=== PATIENT | female | born 1985 | race Caucasian/White ===

== ENCOUNTER 2024-05-15 12:53 | Outpatient (CLI) | payer BC, SELFPAY ==
--- NOTE | 2024-05-15 13:00 | CRLHL7_ITS ---
For Patients: As a result of the Century Cures Act, medical imaging exams and procedure reports are released immediately into your electronic medical record. You may view this report before your referring provider. If you have questions, please contact your health care provider. INDICATION: First trimester scan, establish dates. COMPARISON: None. TECHNIQUE: Real-time peters-scale imaging of the pelvis was performed. FINDINGS: Intrauterine gestational sac is present measuring 3.2 cm, 6 weeks 4 days. Intrauterine pole measures 6.7 millimeters, 6 weeks 4 days. No heart tones. Yolk sac not visualized. Corpus luteal cyst right ovary. Unremarkable left ovary. IMPRESSION: Nonviable intrauterine gestation. Dictated by Rex Montanez MD @ 05/16/2024 4:13:06 PM (Electronically Signed)
== END 2024-05-15 12:54 | disposition home or self-care (01) ==
LOC: US 12:54
PROVIDERS: Visit Provider Midwife
DX: Z34.91 Encounter for supervision of normal pregnancy, unspecified, first trimester (principal)
CPT/HCPCS: 76817

== ENCOUNTER 2025-03-19 17:03 | Emergency (ER) | payer BC, SELFPAY ==
--- OUTSIDE RECORDS SUMMARY | 2025-03-19 17:05 | XMS_ITS | Clinical Summary ---
Author Organization [facility] Address [address] [place] [address] Care Team Providers Care System Dispatcher Name Role Phone Elsewhere, Pcp Primary Care Provider Unavailabl e Source Comments Patient records contain information from all sites at [facility]. For routine questions regarding patient records, call [phone] during business hours, M-F 8:00 AM - 5:00 PM Central Time. Record requests for emergency care only can be directed to [phone] at any time.[facility] Allergies No known active allergies Medications Deblitane 0.35 mg tablet Take 1 tablet by mouth daily. 08/08/2023 Active multivitamin tablet Take 1 tablet by mouth daily. Active benzonatate (Tessalon Perles) 100 mg capsule Take 1 capsule (100 mg total) by mouth 3 (three) times a day as needed for cough. 20 capsule 11/28/2024 Active Active Problems No known active problems Immunizations Immunization Administration Dates Next Due SARS-COV-2 (COVID-19) - MODE RNA (12 YEARS AND OLDER) Fall Seasonal 05/13/2023 SARS-COV-2 (COVID-19) - PFIZ ER (Discontinued)(12 years or older) 06/30/2021,11/13/2020,10/23/2020 SARS-COV-2 (COVID-19) - PFIZ ER BIVALENT TS(Discontinued)(12 YEARS OR OLDER) 07/28/2022 influenza vaccine quad (FLUZONE/FLUARIX) (6 months and older)(PF) 05/13/2023,07/28/2022,05/27/2021,2019 Social History Tobacco Use Types Packs/Day Years Used Date Smoking Tobacco: Former Cigarettes Q uit: 04/02/2015 Smokeless Tobacco: Never Tobacco Cessation:Counseling Given: Not Answered Comments No Sex and Gender Information Value Date Recorded Sex Assigned at Not on file Legal Sex Female 4:54 PM DAY CARE HOME PROVIDER Gender Identity Not on file Sexual Orientation Not on file Last Filed Vital Signs Vital Sign Reading Time Taken Comments Blood Pressure 118/79 11/28/2024 10:05 AM CDT Pulse 105 11/28/2024 10:05 AM CDT Temperature 37 C (98.6 F) 11/28/2024 10:05 AM CDT Respiratory Rate 20 11/28/2024 10:0 5 AM CDT Oxygen Saturation 94% 11/28/2024 10: 05 AM CDT Inhaled Oxygen Concentration - - Weight 88.4 kg (194 lb 14.4 oz) 025 10:05 AM CDT Height 163 cm (5' 4.17) 08/22/2023 3:13 PM DAY CARE HOME PROVIDER Body Mass Index 33.27 08/22/2023 3:13 PM DAY CARE HOME PROVIDER Plan of Treatment Health Maintenance Due Date Last Done Comments HIV Screening 1987 Hepatitis C Screening 1985 COVID-19 Vaccine ( season) 2024 05/13/2023, 07/28/2022, 06/30/2021, Additional history exists Lipid (Cholesterol) Screening 05/09/2024 05/09/2019 Depression Screening (Annual PHQ-2) 07/25/2024 Influenza Vaccine (#1) 2025 , 07/28/2022, 05/27/2021, Additional history exists Cervical/Vaginal Cancer Screening 09/15/2025 09/15/2022 DTaP,Tdap,and Td Vaccines (7 - Td or Tdap) 07/30/2026 07/30/2016, 01/15/1999, 10/13/1992, Additional history exists IPV Vaccines Completed 10/13/1992, 04/25, 03/08/1988, Additional history exists Hepatitis B Vaccines Completed 10/16/1999, 03/23/1999, 01/15/1999 HPV Vaccines Completed 10/18/2018, 04/24, 04/05/2018 Pneumococcal vaccine (0-49 years) Aged Out No longer eligible based on patient's age to complete this topic Insurance [facility] Care Teams System Dispatcher Relationship Specialty Start Date End Date Elsewhere, Pcp PCP - General Family Medicine 05/21/20
--- OUTSIDE RECORDS SUMMARY | 2025-03-19 17:05 | XMS_ITS | Clinical Summary ---
Author Organization [facility] Address [address] [place] [address]. [place] [address] Care Team Providers Care Glaze Sprayer Name Role Phone Cielo Lopes MD Primary Care Provider Cielo Lopes MD Unavailable [phone] Allergies No known active allergies Medications Calcium Citrate-Vitamin D (CALCIUM + D PO) Active norethindrone (MICRONOR) 0.35 MG tabletIndication s:Cystic acne Take 1 tablet (0.35 mg) by mouth daily 84 tablet 3 09/15/2022 Active Active Problems Problem Noted Date Diagnosed Date Family history of breast can cer - paternal aunt and paternal grandmother -start mammograms at 40 and do yearly 09/15/2022 Cystic acne 09/15/2022 External hemorrhoids 10/13/2016 Gastroesophageal reflux dise ase without esophagitis - mostly resolved after delivery- off medications 06/16/2016 Blood type O+ 06/04/2016 Supervision of normal first , antepartu m 05/13/2016 Migraine without aura and wi thout status migrainosus, not intractable - much better off combination ocp's - doing well with progesterone only Overview (05/02/2019): increased premenstrual migraines with Sprintec Resolved Problems Problem Noted Date Diagnosed Date Resolved Date Indication for care in labor or delivery 08/27/2016 03/07/2019 Immunizations Immunization Administration Dates Next Due Flu, Unspecified 05/06/1998 HIB (PRP-T) 03/11/1989 HPV9 (Gardasil) 10/18/2018,05/11/2018,04/05/2018 Hepatitis B, Peds (Engerix-B/Recombivax HB) 10/16/1999,03/23/1999,01/15/1999 Influenza (IIV3) PF 05/22/1999 Influenza Vaccine >6 months,quad, PF ,04/05/2018,04/06/2017,2015 MMR (MMRII) 01/15/1999,09/06/1988 OPV, trivalent, live 10/13/1992,05/19/19 89,03/08/1988,1987,1987 TDAP Vaccine (Boostrix) 07/30/2016 Td (Adult), Adsorbed 01/15/1999 Family History Medical History Relation Comments Cancer Paternal Aunt Cerebrovascular Disease Paternal Grandfather Breast Cancer Paternal Grandmother Breast Cancer Paternal Uncle Relation Status Comments Father Alive Mother Alive Paternal Aunt Alive Paternal Grandfather Paternal Grandmother Alive Paternal Uncle Alive Social History Tobacco Use Types Packs/Day Years Used Date Smoking Tobacco: Former Cigarettes 0.5 13 1 08/25/2001 - 06/24/2015 Smokeless Tobacco: Never Alcohol Use Standard Drinks/Week Comments No 0 (1 standard drink = 0.6 oz pur e alcohol) PHQ-2 Answer Date Recorded PHQ-2 Score 0 09/15/2022 Adolescent Education Answer Date Record ed Getting School Help Needed Not on file 04/15 Comments No Sex and Gender Information Value Date Recorded Sex Assigned at Not on file Legal Sex Female 1:35 PM CDT Gender Identity Not on file Sexual Orientation Not on file 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 Not on file Not on file Not on f ile Last Filed Vital Signs Vital Sign Reading Time Taken Comments Blood Pressure 118/78 09/15/2022 12:18 PM WEB DESIGN INSTRUCTOR Pulse 80 09/15/2022 12:18 PM WEB DESIGN INSTRUCTOR Temperature 37.3 C (99.1 F) 09/15/2022 12:18 PM WEB DESIGN INSTRUCTOR Respiratory Rate 16 09/15/2022 12:18 PM WEB DESIGN INSTRUCTOR Oxygen Saturation 98% 09/15/2022 12:18 PM WEB DESIGN INSTRUCTOR Inhaled Oxygen Concentration - - Weight 73 kg (161 lb) 09/15/2022 12:18 PM WEB DESIGN INSTRUCTOR Height 162.6 cm (5' 4) 09/15/2022 12:18 PM WEB DESIGN INSTRUCTOR Body Mass Index 27.64 09/15/2022 12:18 PM WEB DESIGN INSTRUCTOR Plan of Treatment Health Maintenance Due Date Last Done Comments DIABETES SCREENING 06/06/2022 06/06/2019, 05/09/2019 ANNUAL REVIEW OF HM ORDERS 09/15/2023 09/15/2022 YEARLY PREVENTIVE VISIT 09/15/2023 09/15/2022, 05/02 COVID-19 VACCINE ( season) 2024 07/28/2022, 06/30/2021, 11/13/2020, Additional history exists PHQ-2 (once per calendar year) 2024 09/15/2022, 05/02/2019, 11/18/2017, Additional history exists INFLUENZA VACCINE (#1) 2025 , 05/27/2021, 05/21/2020, Additional history exists HPV TEST 09/15/2025 09/15/2022, 05/13/2016 PAP 09/15/2025 09/15/2022, 0308/2016, 05/13/2016 DTAP/TDAP/TD VACCINE (3 - Td or Tdap) 07/30/2026 07/30/2016, 01/15/1999 ADVANCE CARE PLANNING 09/27/2027 09/26/2022 ZOSTER VACCINE (1 of 2) 2037 HEPATITIS B VACCINE Completed 10/16/1999, 03/23/1999, 01/15/1999 HIV SCREENING Completed 05/13/2016 HPV VACCINE Completed 10/18/2018, 04/24, 04/05/2018 HEPATITIS C SCREENING Completed 09/15/2022 MENINGITIS VACCINE Aged Out No longer eligible based on patient's age to complete this topic PNEUMOCOCCAL VACCINE: PEDIATRICS (0 to 5 YEARS) AND AT-RISK PATIENTS (6 to 49 YEARS) Aged Out No longer eligible based on patient's age to complete this topic Procedures Procedure Name Priority Date/Time Associated Diagnosis Comments HEPATITIS C SCREEN REFLEX TO HCV RNA QUANT AND GENOTYPE Routine 09/15/2022 1:12 PM WEB DESIGN INSTRUCTOR Need for hepatitis C screening test GYNECOLOGIC CYTOLOGY Routine 09/15/2022 12:41 PM WEB DESIGN INSTRUCTOR Cervical cancer screening HPV HIGH RISK TYPES DNA CERVICAL Routine 09/15/2022 12:41 PM WEB DESIGN INSTRUCTOR Cervical cancer screening BASIC METABOLIC PANEL Routine 06/06/2019 9:44 AM WEB DESIGN INSTRUCTOR Cystic acne assisted current use of diuretic HIV ANTIGEN ANTIBODY COMBO Routine 05/13/2016 11:08 AM CDT Supervision of normal first , antepartum from Last 3 Months or Most Recently Relevant to Health Maintenance Results * Hepatitis C Screen Reflex to HCV RNA Quant and Genotype (09/15/2022 1:12 PM WEB DESIGN INSTRUCTOR) Hepatitis C Antibody Nonreactive Nonreactive 09/16/2022 9:40 AM WEB DESIGN INSTRUCTOR [facility] Blood BLOOD SPECIMEN / Unknown Venipuncture / Unknown 09/15/2022 1:12 PM WEB DESIGN INSTRUCTOR 09/15/2022 1:12 PM WEB DESIGN INSTRUCTOR Narrative [facility] - 09/16/2022 9:40 AM WEB DESIGN INSTRUCTOR Assay performance characteristics have not been established for newborns, infants, and children. us Cielo Lopes MD LAB - BLOOD ORDERABLES Final Result [facility] [address] [facility], Room [address] [phone] * Pap Screen with HPV - recommended age 30 - 65 years (09/15/2022 12:41 PM WEB DESIGN INSTRUCTOR) Interpretation Negative for Intraepithelial Lesion or Malignancy (NILM) 09/20/2022 1:46 PM WEB DESIGN INSTRUCTOR [facility] at 1346 WEB DESIGN INSTRUCTOR Comment Papanicolaou Test Limitations: Cervical cytology is a screening test with limited sensitivity, and regular screening is critical for cancer prevention. Pap tests are primarily effective for the diagnosis/prevent ion of squamous cell carcinoma, not adenocarcinoma or other cancers. 09/20/2022 1:46 PM WEB DESIGN INSTRUCTOR [facility] Specimen Adequacy Satisfactory for evaluation, endocervical/choudhury sformation zone component present 09/20/2022 1:46 PM WEB DESIGN INSTRUCTOR [facility] Clinical Information none 09/20/2022 1:46 PM WEB DESIGN INSTRUCTOR [facility] LMP/Menopause Date 09/06/2022 09/20/2022 1:46 PM WEB DESIGN INSTRUCTOR [facility] Reflex Testing Yes regardless of result 09/20/2022 1:46 PM WEB DESIGN INSTRUCTOR [facility] Previous Abnormal? No 09/20/2022 1:46 PM WEB DESIGN INSTRUCTOR [facility] Performing Labs The technical component of this testing was completed at [facility] 09/20/2022 1:46 PM WEB DESIGN INSTRUCTOR [facility] Brushing CERVIX UTERI STRUCTURE / Unknown Non-blood Collection / Unknown 09/15/2022 12:41 PM WEB DESIGN INSTRUCTOR 09/15/2022 1:09 PM WEB DESIGN INSTRUCTOR Cielo Lopes MD LAB - JASMIN AP Final R esult [facility] Specialty Lab [address] [facility], [address] [phone], [facility] [phone] * HPV High Risk Types DNA Cervical (09/15/2022 12:41 PM WEB DESIGN INSTRUCTOR) Other HR HPV Negative Negative 09/22/2022 3:11 PM WEB DESIGN INSTRUCTOR [facility] HPV16 DNA Negative Negative 09/22/2022 3:11 PM WEB DESIGN INSTRUCTOR [facility] HPV18 DNA Negative Negative 09/22/2022 3:11 PM WEB DESIGN INSTRUCTOR [facility] FINAL DIAGNOSIS This patient's sample is negative for HPV DNA. This test was developed and its performance characteristics determined by the [facility], Molecular Diagnostics Laboratory. It has not been cleared or approved by the FDA. The laboratory is regulated under CLIA as qualified to perform high-complexity testing. This test is used for clinical purposes. It should not be regarded as investigational or for research. METHODOLOGY: The Noe Kary 4800 system uses automated extraction, simultaneous amplification of HPV (L1 region) and beta-globin, followed by real time detection of fluorescent labeled HPV and beta globin using specific oligonucleotide probes. The test specifically identifies types HPV 16 DNA and HPV 18 DNA while concurrently detecting the rest of the high risk types (31, 33, 35, 39, 45, 51, 52, 56, 58, 59, 66 or 68). COMMENTS: This test is not intended for use as a screening device for woman under age 30 with normal cervical cytology. Results should be correlated with cytologic and histologic findings. Close clinical followup is recommended. 09/22/2022 3:11 PM WEB DESIGN INSTRUCTOR [facility] Brushing CERVIX UTERI STRUCTURE / Unknown Non-blood Collection / Unknown 09/15/2022 12:41 PM WEB DESIGN INSTRUCTOR 09/21/2022 7:43 AM WEB DESIGN INSTRUCTOR us Cielo Lopes MD LAB - BLOOD ORDERABLES Final Result [facility] Molecular Diagnostics [address] [facility], [address] [phone], [facility] [phone] * Basic metabolic panel (06/06/2019 9:44 AM WEB DESIGN INSTRUCTOR) Sodium 138 133 - 144 mmol/L 06/06/2019 1:25 PM [facility] Potassium 4.0 3.4 - 5.3 mmol/L 06/06/2019 1:25 PM [facility] Chloride 109 94 - 109 mmol/L 06/06/2019 1:25 PM [facility] Carbon Dioxide 24 20 - 32 mmol/L 06/06/2019 1:31 PM [facility] Anion Gap 5 3 - 14 mmol/L 06/06/2019 1:31 PM [facility] Glucose 76 70 - 99 mg/dL 06/06/2019 1:31 PM [facility] Urea Nitrogen 11 7 - 30 mg/dL 06/06/2019 1:31 PM [facility] Creatinine 0.73 0.52 - 1.04 mg/dL 06/06/2019 1:31 PM [facility] GFR Estimate >90 >60 mL/min/{1 .73_m2} 06/06/2019 1:31 PM WEB DESIGN INSTRUCTOR [facility] Comment: Non GFR Calc Starting 07/11/2018, serum creatinine based estimated GFR (eGFR) will be calculated using the Chronic Kidney Disease Epidemiology Collaboration (CKD-EPI) equation. GFR Estimate If Black >90 >60 mL/min/{1 .73_m2} 06/06/2019 1:31 PM [facility] Comment: GFR Calc Starting 07/11/2018, serum creatinine based estimated GFR (eGFR) will be calculated using the Chronic Kidney Disease Epidemiology Collaboration (CKD-EPI) equation. Calcium 8.7 8.5 - 10.1 mg/dL 06/06/2019 1:31 PM WEB DESIGN INSTRUCTOR [facility] Blood specimen (specimen) 06/06/2019 9:44 AM WEB DESIGN INSTRUCTOR 06/06/2019 9:45 AM WEB DESIGN INSTRUCTOR us Cielo Lopes MD LAB - BLOOD ORDERABLES Final Result [facility] [address] [phone] [facility] [address] [place] [phone] * HIV Antigen Antibody Combo (05/13/2016 11:08 AM CDT) HIV Antigen Antibody Combo Nonreactive HIV-1 p24 Ag & HIV-1/HIV-2 Ab Not Detected NR [facility] Blood specimen (specimen) 05/13/2016 11:08 AM CDT 05/13/2016 11:09 AM CDT us Cielo Lopes MD LAB - BLOOD ORDERABLES Final Result [facility] [address] [place] [address], [facility] from Last 3 Months or Most Recently Relevant to Health Maintenance Insurance BCBS OUT OF STATE Care Teams Glaze Sprayer Relationship Specialty Start Date End Date Cielo Lopes MD [address] [place] [address] [id number] PCP - General Family Practice 09/01/16 Cielo Lopes MD [address] [place] [address] [id number] Assigned PCP 09/18/22
[2025-03-19 17:11] VITALS: BP 150/95; PULSE 78; RESP 18; TEMP 36.7; O2SAT 96; BMI 35.7
--- NOTE | 2025-03-19 17:22 | CRLHL7_ITS ---
For Patients: As a result of the Century Cures Act, medical imaging exams and procedure reports are released immediately into your electronic medical record. You may view this report before your referring provider. If you have questions, please contact your health care provider. INDICATION: Vaginal bleeding. TECHNIQUE: Ultrasound OB pelvis transabdominal and transvaginal. Real-time peters-scale imaging of the pelvis was performed. COMPARISON: None. FINDINGS: There is a single intrauterine gestation located within the lower uterine segment. The embryo demonstrates a regular cardiac rate measuring 111 beats per minute. The embryo`s crown rump length measurement of 0.51 cm corresponds to a gestational age of 6 weeks, 2 days with a sonographic due date of 11/10/2025. There is a normal appearing yolk sac. There are no gross abnormalities noted within the embryo at this early state of development. The placenta has not yet developed. There is no sign of perigestational hemorrhage. The ovaries are of normal size. Tiny right corpus luteal cyst. There are no suspicious fluid collections noted in the cul-de-sac. IMPRESSION: Single viable intrauterine which is located in the lower uterine segment. Recommend continued follow-up as clinically indicated. Gestational age of 6 weeks, 2 days based on crown-rump length. Dictated by Shukri South MD @ 03/19/2025 7:29:48 PM (Electronically Signed)
--- NOTE | 2025-03-19 17:37 | ED_ITS ---
HPI - General Date Seen: 03/19/25 Chief complaint: Vaginal Bleeding Stated complaint: Possible miscarriage Time Seen by Provider: 03/19/25 17:05 Source: patient, family, RN notes reviewed and old records reviewed Mode of arrival: ambulatory Limitations: no limitations History of Present Illness HPI Narrative: Patient is a very nice 39-year-old female who is a SAB 1, presents here at 6.5 weeks gestation, with bright red vaginal bleeding since approximately 30 today. She notes that she has soaked through approximately 3 pads, it is not running down her legs, she has some mild cramping associated with this. Very much like a previous miscarriage she had. She denies any significant fevers chills vaginal discharge, dysuria frequency. She has not felt like she might pass out associated with this she has no history of anemia she knows for any bleeding tendency she did not take any medications, she was at work when this started and came promptly to the hospital. She has a 1st OB visit scheduled for April 04. No history of any cardio pulmonary problems she presents here with her significant other. MD Complaint: vaginal bleeding Onset (ago): hour(s) Pain Consistency: constant Location: pelvis Severity: moderate Quality: Cramping Relieving factors: none Associated symptoms: denies other symptoms Vaginal bleeding: heavy Patient : Yes Expected Date of Delivery: 11/08/25 Number of Weeks : 6.5 OB History - Current : no complications OB History - Previous Pregnancies: no complications care: none Related Data : 3 Para: 1 Total number of abortions (spontaneous and elective): 1 Home Medications ?Medication ?Instructions ?Recorded ?Confirmed docosahexaenoic acid 200 mg mg PO 05/15/24 05/15/24 capsule ( DHA) Allergies Allergy/AdvReac Type Severity Reaction Status Date / Time No Known Drug Allergies Allergy Verified 05/15/24 14:04 Review of Systems Status of ROS: Reports: 10 or more systems reviewed and unremarkable except as noted in History and below Exam Narrative: Exam Narrative: On examination in room 7 she is in no apparent distress she is pleasant alert pupils equal round reactive to light there is no scleral icterus redness or TMs are normal oropharynx normal neck is supple no conjunctival paleness noted. Chest is good air entry bilaterally with no wheezing crackles noted heart sounds are normal her abdomen is soft, no tenderness to palpation bowel sounds are normal. Moves all extremities independently well good cap refill, good hydration status. Neurologically intact. Const: Vital Signs, click to edit/add: Vital Signs - 24 hr 03/19/25 17:11 Temperature 98.0 F Pulse Rate [Right Pulse Oximeter] 78 Respiratory Rate 18 Blood Pressure [Ri ght Upper Arm] 150/95 H Pulse Oximetry 96 Oxygen Delivery Me thod Room Air Documenting provider has reviewed patient's vital signs: yes Course Course ED Course: Discussed with the patient and her partner, the ultrasound shows appropriate development, but at a lower segment viable , no evidence of bleeding, I discussed this with the radiologist, watchful waiting along with trending beta HCGs is suggested return if increasing bleeding fevers chills or abdominal pain, follow-up with OBGYN and to call tomorrow for appointment. Vital Signs Vital signs: Initial Vital Signs Temperature 98.0 F 03/19/25 17:11 Temperature Source Temporal Artery Scan 03/19/25 17:11 Pulse Rate 78 03/19/25 17:11 Respiratory Rate 18 03/19/25 17:11 Blood Pressure 150/95 H 03/19/25 17:11 Blood Pressure Mean 113 H 03/19/25 17:11 Blood Pressure Position Sitting 03/19/25 17:11 Pulse Oximetry 96 03/19/25 17:11 Oxygen Delivery Method Room Air 03/19/25 17:11 Vital Signs Temperature 98.0 F 03/19/25 17:11 Pulse Rate 78 03/19/25 17:11 Respiratory Rate 18 03/19/25 17:11 Blood Pressure 150/95 H 03/19/25 17:11 Pulse Oximetry 96 03/19/25 17:11 Oxygen Delivery Method Room Air 03/19/25 17:11 Temperature 98.0 F 03/19/25 17:11 Pulse Rate 78 03/19/25 17:11 Respiratory Rate 18 03/19/25 17:11 Blood Pressure 150/95 H 03/19/25 17:11 Pulse Oximetry 96 03/19/25 17:11 Oxygen Delivery Method Room Air 03/19/25 17:11 Medications Administered Medications: Discontinued Medications Generic Name Dose Route Start Last Admin Trade Name Freq PRN Reason Stop Dose Admin Sodium Chloride 1,000 mls @ 1,000 mls/hr 03/19/25 17:45 03/19/25 18:03 0.9 % Sodium Chloride 1000 Ml IV 03/19/25 18:44 1,000 mls/hr .Q1H DIPESH Administration MDM - OB/Uterine Contractions MDM Narrative Medical decision making narrative: Differential diagnosis includes but is not limited to uterine fibroids, intrauterine , ectopic , placenta previa, spontaneous , and cancers of the uterus and cervix. This includes the life-thre atening complications of hypovolemia secondary to bleeding, ectopic and cancer. Medical Records Attestation: I reviewed the patient's medical records. Lab Data Attestation: I reviewed the patient's lab results. Labs: Lab Results 03/19/25 Range/Units 17:37 WBC 7.35 (4.50-11.00) K/uL RBC 4.41 (4.00-5.20) m/uL Hgb 13.3 (12.0-16.0) gm/dL Hct 39.7 (33.0-51.0) % MCV 90 (80-100) fL MCH 30 (26-34) pg MCHC 34 (32-36) gm/dL RDW Coeff of Cirilo 12.6 (11.5-15.5) % Plt Count 284 (140-440) K/uL Neut % (Auto) 65.0 (42.0-72.0) % Lymph % (Auto) 26.4 (20-44) % [place] % (Auto) 6.3 (0.0-11.0) % Eos % (Auto) 1.9 (0.0-7.0) % Baso % (Auto) 0.3 (0.0-3.0) % Neut # (Auto) 4.78 (1.7-7.0) K/uL Lymph # (Auto) 1.94 (0.90-2.90) K/uL [place] # (Auto) 0.50 (0.00-0.90) K/UL Eos # (Auto) 0.14 (0.00-0.50) K/uL Baso # (Auto) 0.02 (0.00-0.30) K/uL Abs Immat Gran (auto) 0.01 (0.00-0.30) K/uL Imm/Tot Granulo (auto) 0.1 % INR 0.97 (0.91-1.10) APTT 32 (23-33) Seconds Sodium 135 (135-149) mmol/L Potassium 4.0 (3.6-5.1) mmol/L Chloride 103 (96-114) mmol/L Carbon Dioxide 24 (20-32) mmol/L Anion Gap 8 (7-15) mEq/L BUN 11 (5-24) mg/dL Creatinine 0.6 (0.5-1.5) mg/dL Estimated Creat Clear 110.86 Estimated GFR 118 ml/min Glucose 95 (60-115) mg/dL Calcium 9.2 (8.4-10.6) mg/dL HCG, Quant 6998.60 mIU/mL Lab Acknowledgement Test Added Blood Type O Positive Antibody Screen NEGATIVE Imaging Data Ultrasound: Radiologist's impression: Patient: YANI GARCIA Facility:?[facility] Patient ID:?[id number] Site Patient ID:?[id number]. Site :?[id number] Study:?US-OB Pelvis 1st tri transvaginal-03/19/2025 6:56:30 PM Ordering Physician:Meg Hendrix Final Report: INDICATION: Vaginal bleeding. TECHNIQUE: Ultrasound OB pelvis transabdominal and transvaginal. Real-time peters-scale imaging of the pelvis was performed. COMPARISON: None. FINDINGS: There is a single intrauterine gestation located within the lower uterine segment. The embryo demonstrates a regular cardiac rate measuring 111 beats per minute. The embryo`s crown rump length measurement of 0.51 cm corresponds to a gestational age of 6 weeks, 2 days with a sonographic due date of 11/10/2025. There is a normal appearing yolk sac. There are no gross abnormalities noted within the embryo at this early state of development. The placenta has not yet developed. There is no sign of perigestational hemorrhage. The ovaries are of normal size. Tiny right corpus luteal cyst. There are no suspicious fluid collections noted in the cul-de-sac. IMPRESSION: Single viable intrauterine which is located in the lower uterine segme nt. Recommend continued follow-up as clinically indicated. Gestational age of 6 weeks, 2 days based on crown-rump length. Dictated by Shukri South MD @ 03/19/2025 7:29:48 PM (Electronic Signature) Discharge Plan Discharge Clinical Impression: Threatened Patient Disposition: Home w/ Parent or Adult Condition: Guarded Instructions: Threatened Miscarriage (ED) Additional Instructions: Home rest, no intercourse, no heavy lifting, actually a lot of just sitting around or laying around. If your bleeding worsens, or you become lightheaded, or the cramping gets severe, he need to come back to the ER otherwise I think follow-up in a couple days with [facility], and get another blood test, I would encourage you to call them tomorrow, and explain to them what we talked about here in they will know what to do. Activity Level: Light activity Discharge Diet: Regular Prescriptions: No Action DHA 200 mg capsule PO Follow Up/Referrals: Provider,Not a Local [Primary Care Provider, Family Practice] Stand Alone Forms: Xyo Info Instructions Procedures Perimortem Number of Weeks : 6.5
[2025-03-19 17:58] LABS: Hematocrit 39.7 % (33.0-51.0); Hemoglobin* 13.3 gm/dL (12.0-16.0); Immature Granulocytes Abs Auto 0.01 K/uL (0.00-0.30); Immature Granulocytes Pct Auto 0.1 %; Lymphocytes Absolute Auto 1.94 K/uL (0.90-2.90); Mean Corpuscular HGB Conc 34 gm/dL (32-36); Mean Corpuscular Hemoglobin 30 pg (26-34); Mean Corpuscular Volume 90 fL (80-100); RDW Coefficient of Variation % 12.6 % (11.5-15.5); Red Blood Count 4.41 m/uL (4.00-5.20); White Blood Count* 7.35 K/uL (4.50-11.00)
[2025-03-19 17:59] LABS: Slide Review Reflex No
[2025-03-19 18:05] LABS: Chloride* 103 mmol/L (96-114); Potassium* 4.0 mmol/L (3.6-5.1); Sodium* 135 mmol/L (135-149)
[2025-03-19 18:07] LABS: INR 0.97 (0.91-1.10); Prothrombin Time 13.6 Seconds
[2025-03-19 18:08] LABS: Anion Gap 8 mEq/L (7-15); Blood Urea Nitrogen* 11 mg/dL (5-24); Calcium* 9.2 mg/dL (8.4-10.6); Carbon Dioxide* 24 mmol/L (20-32); Creatinine* 0.6 mg/dL (0.5-1.5); Est. Creatinine Clearance* 110.86; Estimated Glomerular Filt Rate 118 ml/min; Glucose* 95 mg/dL (60-115)
[2025-03-19 19:43] LABS: HCG Quantitative* 6998.60 mIU/mL
[2025-03-19 20:10] VITALS: BP 129/86; PULSE 79; O2SAT 100
== END 2025-03-19 20:10 | disposition home or self-care (01) ==
PROVIDERS: Emergency Provider Family Medicine
DX: O20.0 Threatened abortion (principal)
CPT/HCPCS: 36415; 76817; 80048; 84702; 85025; 85610; 85730; 86850; 86900; 86901; 99284; J7030

== ENCOUNTER 2025-03-28 13:48 | Outpatient (CLI) | payer BC, SELFPAY ==
--- NOTE | 2025-03-28 14:00 | CRLHL7_ITS ---
For Patients: As a result of the Cures Act, medical imaging exams and procedure reports are released immediately into your electronic medical record. You may view this report before your referring provider. If you have questions, please contact your health care provider. INDICATION: F/U Viability COMPARISON: Obstetric ultrasound on March 19, 2025 TECHNIQUE: First trimester obstetric ultrasound, transvaginal approach, utilizing grayscale and color Doppler. FINDINGS: The uterus is normal in size and echogenicity. There is no intrauterine gestational sac. Small region of increased vascularity of the endometrium near the fundus to the right of midline, favored to represent a minimal amount of retained products of conception. The cervix is normal. The right ovary measures 2.5 x 2.3 x 2.5 cm. Physiologic appearance without a dominant cystic lesion or solid ovarian / adnexal mass. The left ovary is not visualized. No suspicious adnexal lesions. No free fluid. IMPRESSION: 1. The previously imaged intrauterine gestational sac on prior examination is not present on today`s study, consistent with miscarriage. 2. Small region of increased vascularity of the endometrium near the uterine fundus to the right of midline, favored to represent a minimal amount of retained products of conception. Dictated by Antolin Jeong MD @ 03/28/2025 2:57:06 PM (Electronically Signed)
== END 2025-03-28 13:49 | disposition home or self-care (01) ==
LOC: US 13:48
PROVIDERS: Visit Provider Obstetrics & Gynecology
DX: O20.0 Threatened abortion (principal)
CPT/HCPCS: 76817

== ENCOUNTER 2025-03-28 14:51 | Outpatient (CLI) | payer BC, SELFPAY | END 2025-03-28 14:52 | disposition home or self-care (01) | LOC: NFLDREF 14:51 | PROVIDERS: Visit Provider Physician Assistant | DX: O20.0 Threatened abortion (principal) | CPT/HCPCS: 84702 ==

== ENCOUNTER 2025-04-04 13:57 | Outpatient (CLI) | payer BC, SELFPAY | END 2025-04-04 13:58 | disposition home or self-care (01) | LOC: NFLDREF 04-09 08:16 | PROVIDERS: Visit Provider Physician Assistant | DX: O03.9 Complete or unspecified spontaneous abortion without complication (principal) | CPT/HCPCS: 84702 ==

== ENCOUNTER 2025-04-10 15:03 | Outpatient (CLI) | payer BC, SELFPAY | END 2025-04-10 15:04 | disposition home or self-care (01) | LOC: NFLDREF 04-16 17:19 | PROVIDERS: Visit Provider Physician Assistant | DX: O03.9 Complete or unspecified spontaneous abortion without complication (principal) | CPT/HCPCS: 84702 ==

== ENCOUNTER 2025-04-19 15:00 | Outpatient (CLI) | payer BC, SELFPAY | END 2025-04-19 15:01 | disposition home or self-care (01) | LOC: NFLDREF 04-22 09:50 | PROVIDERS: Visit Provider Physician Assistant | DX: O03.9 Complete or unspecified spontaneous abortion without complication (principal) | CPT/HCPCS: 84702 ==